=== PATIENT | male | born 1985 | race Caucasian/White ===

== ENCOUNTER 2021-06-30 14:00 | Observation (INO) | payer SELFPAY ==
[~2021-06-30] VITALS: Ht 182 cm; Wt 95.6 kg
--- NOTE | 2021-06-30 14:20 | ED Chest Pain ---
General Chief Complaint: Chest Pain Stated Complaint: ABNORMAL EKG,CP Source: patient Exam Limitations: no limitations History of Present Illness Date Seen by Provider: Jun 30, 2021 Time Seen by Provider: 14:18 Initial Comments To ER by [facility] with reports of abnormal EKG with chest pain. The chest pain has been present for 2 days. He is having trouble sleeping for 2 days and chest pain and trouble catching his breath. He found out 2 days ago that his is from him after 15 years of marriage. He had a brief passing thought that he might be better off but does not have any particular desire to kill himself or plan to do so. He feels very anxious. He does have a history of hypertension hyperlipidemia. Timing/Duration: 1-2 days Severity/Quality: moderate Location: central Radiation: no radiation Activities at Onset: none ASA po TAX SERVICES PROFESSIONAL: No NTG SL TAX SERVICES PROFESSIONAL: No Allergies and Home Medications Allergies Coded Allergies: No Known Allergies (Verified Allergy, Unknown, 09/23/05) Patient Home Medication List Home Medication List Reviewed: Yes Review of Systems Review of Systems Constitutional: see HPI EENTM: No Symptoms Reported Respiratory: See HPI, Shortness of Air Cardiovascular: See HPI, Chest Pain Genitourinary: No Symptoms Reported Musculoskeletal: no symptoms reported Skin: no symptoms reported Psychiatric/Neurological: No Symptoms Reported Endocrine: No Symptoms Reported Hematologic/Lymphatic: No Symptoms Reported Past Kysyitz-Wywwce-Tmmprz Hx Patient Social History Tobacco Use?: No Use of E-Cig and/or Vaping dev: No Substance use?: No Alcohol Use?: No Pt feels they are or have been: No Immunizations Up To Date First/Initial COVID19 Vaccinat: UNK Second COVID19 Vaccination Juan Luis: UNK Past Medical History Nursing Suicide Risk Notes: SEE TRIAGE NOTE Physical Exam Vital Signs Vital Signs - First Documented 06/30/21 14:04 Temp 36.3 Pulse 90 Resp 18 B/P (MAP) 135/88 (104) Pulse Ox 100 O2 Delivery Room Air Capillary Refill : Height, Weight, BMI Height: '" Weight: lbs. oz. kg; BMI Method: General Appearance: No Apparent Distress, WD/WN, Anxious, Other (He denies any plan to kill himself, he states that he just had a passing thought that he might be better off given what he is going through. He makes good eye contact seems reasonable) HEENT: PERRL/EOMI, TMs Normal Respiratory: Normal Breath Sounds, No Accessory Muscle Use, No Respiratory Distress Cardiovascular: Regular Rate, Rhythm, Normal Peripheral Pulses Gastrointestinal: Normal Bowel Sounds, Non Tender, Soft Extremity: Normal Capillary Refill, Normal Inspection Neurologic/Psychiatric: Alert, Oriented x3, Other (he is anxious but denies any desire to hurt himself or anyone else.) Skin: Normal Color, Warm/Dry Progress/Results/Core Measures Results/Orders Lab Results Laboratory Tests Test 06/30/21 14:10 06/30/21 15:14 Range/Units White Blood Count 8.1 4.3-11.0 10^3/uL Red Blood Count 5.86 H 4.30-5.52 10^6/uL Hemoglobin 17.2 13.3-17.7 g/dL Hematocrit 49 40-54 % Mean Corpuscular Volume 83 80-99 fL Mean Corpuscular Hemoglobin 29 25-34 pg Mean Corpuscular Hemoglobin Concent 35 32-36 g/dL Red Cell Distribution Width 13.3 10.0-14.5 % Platelet Count 315 130-400 10^3/uL Mean Platelet Volume 10.5 9.0-12.2 fL Immature Granulocyte % (Auto) 0 % Neutrophils (%) (Auto) 57 42-75 % Lymphocytes (%) (Auto) 33 12-44 % Monocytes (%) (Auto) 10 0-12 % Eosinophils (%) (Auto) 0 0-10 % Basophils (%) (Auto) 0 0-10 % Neutrophils # (Auto) 4.6 1.8-7.8 10^3/uL Lymphocytes # (Auto) 2.6 1.0-4.0 10^3/uL Monocytes # (Auto) 0.8 0.0-1.0 10^3/uL Eosinophils # (Auto) 0.0 0.0-0.3 10^3/uL Basophils # (Auto) 0.0 0.0-0.1 10^3/uL Immature Granulocyte # (Auto) 0.0 0.0-0.1 10^3/uL Prothrombin Time 13.2 12.2-14.7 SEC INR Comment 1.0 0.8-1.4 Activated Partial Thromboplast Time 36 H 24-35 SEC Sodium Level 133 L 135-145 MMOL/L Potassium Level 3.9 3.6-5.0 MMOL/L Chloride Level 98 98-107 MMOL/L Carbon Dioxide Level 22 21-32 MMOL/L Anion Gap 13 5-14 MMOL/L Blood Urea Nitrogen 14 7-18 MG/DL Creatinine 1.12 0.60-1.30 MG/DL Estimat Glomerular Filtration Rate 87 BUN/Creatinine Ratio 13 Glucose Level 113 H 70-105 MG/DL Calcium Level 10.2 H 8.5-10.1 MG/DL Corrected Calcium 8.5-10.1 MG/DL Magnesium Level 2.2 1.6-2.4 MG/DL Total Bilirubin 1.5 H 0.1-1.0 MG/DL Aspartate Amino Transf (AST/SGOT) 17 5-34 U/L Alanine Aminotransferase (ALT/SGPT) 28 0-55 U/L Alkaline Phosphatase 69 40-136 U/L Myoglobin 56.5 10.0-92.0 NG/ML Troponin I 0.081 H <0.028 NG/ML C-Reactive Protein High Sensitivity 0.12 0.00-0.50 MG/DL B-Type Natriuretic Peptide < 10.0 <100.0 PG/ML Total Protein 8.8 H 6.4-8.2 GM/DL Albumin 5.4 H 3.2-4.5 GM/DL Erythrocyte Sedimentation Rate 5 0-15 MM/HR My Orders Orders - MIRNA BORJA ALMOND PA[employer]ER Cbc With Automated Diff (06/30/21 14:17) Magnesium (06/30/21 14:17) Chest 1 View, Ap/Pa Only (06/30/21 14:17) Ekg Tracing (06/30/21 14:17) Comprehensive Metabolic Panel (06/30/21 14:17) Myoglobin Serum (06/30/21 14:17) Protime With Inr (06/30/21 14:17) Partial Thromboplastin Time (06/30/21 14:17) O2 (06/30/21 14:17) Monitor-Rhythm Ecg Trace Only (06/30/21 14:17) Lipid Panel (07/01/21 06:00) Ed Iv/Invasive Line Start (06/30/21 14:17) Bnp Simon (06/30/21 14:17) Troponin I Churchill (06/30/21 14:17) Aspirin Chewable Tablet (Baby Aspirin Ch (06/30/21 14:30) Lorazepam Injection (Ativan Injection) (06/30/21 14:30) Ekg Tracing (06/30/21 14:58) Nitroglycerin 0.4 Mg Btl 25's (Nitrostat (06/30/21 15:15) Erythrocyte Sedimentation Rate (06/30/21 15:06) Hs C Reactive Protein (06/30/21 15:06) Medications Given in ED Current Medications Medications Dose Ordered Sig/Bryson Route Start Time Stop Time Status Last Admin Dose Admin Aspirin 324 mg ONCE ONCE PO 06/30/21 14:30 06/30/21 14:31 DC 06/30/21 14:32 324 MG Lorazepam 0.5 mg ONCE PRN IVP 06/30/21 14:30 06/30/21 14:32 0.5 MG Nitroglycerin 1 TAB Q 5 MIN X 3 NEEDED PRN SL 06/30/21 15:15 06/30/21 15:20 0.4 MG Vital Signs/I&O 06/30/21 06/30/21 06/30/21 14:04 14:20 14:34 Temp 36.3 Pulse 90 85 Resp 18 18 B/P (MAP) 135/88 (104) 132/84 Pulse Ox 100 97 97 O2 Delivery Room Air Room Air Room Air Diagnostic Imaging Diagonstic Imaging: Xray Plain Films/CT/US/NM/MRI: chest Comments NAME: DEVYN VIGIL [facility] REC#: [id number] PT STATUS: REG ER : 1985 PHYSICIAN: MIRNA BORJA APRN ADMIT DATE: 06/30/21/ER Draft Date of Exam:06/30/21 CHEST 1 VIEW, AP/PA ONLY INDICATION: Left-sided chest pain. TIME OF EXAM: 2:43 p.m. COMPARISON: No prior studies are available for comparison. FINDINGS: The heart size is normal. The pulmonary vascularity is unremarkable. The lungs are clear. No infiltrate, effusion or pneumothorax is detected. IMPRESSION: No acute cardiopulmonary process is detected. Dictated on workstation # [id number] Dict: 06/30/21 1443 Trans: 06/30/21 1445 [id number] Interpreted by: MARIELA DOTY MD Electronically signed by: Departure Communication (Admissions) His EKG from [facility] was reviewed in addition to the one obtained here. This is sinus rhythm in the 90s, no ST segment change no ectopy. Our EKG machine interpreted this as minimal ST elevation in the lateral leads but do not appreciate any ST segment change. Intervals are normal, no ectopy 1502*-arrival he was given 324 mg of baby aspirin and 0.5 mg lorazepam. At this time he reports that he feels more calm and the anxiety seems to be gone. However the chest tightness still persists as does the dyspnea. He is about 1 month out from having Covid. He rates the chest tightness as a 4 out of 10. We will get a repeat EKG and try some sublingual nitroglycerin. He states he feels much more calm and appears so. His troponin is a little bumped up 0.081. We will evaluate his response to nitroglycerin, look at the repeat EKG and call Dr. Avelar from cardiology. 1609-2 sublingual nitroglycerin completely alleviated the rest of his symptoms of shortness of breath and chest tightness. Alert very pleasant hemodynamically stable. I spoke with Dr. Avelar from cardiology. Will admit observation serial troponins. A one-time dose of Lovenox here in the emergency room. Aspirin upstairs. I will admit to Dr. Campbell who is on-call for [facility]. Impression Primary Impression: Chest pain Additional Impression: Anxiety Disposition: ADMITTED INPATIENT Condition: Stable Admissions Decision to Admit Reason: Admit from ER (General) Decision to Admit/Date: Jun 30, 2021 Time/Decision to Admit Time: 16:10 Departure-Patient Inst. Referrals: NO,LOCAL PHYSICIAN (PCP/Family) Primary Care Physician MIRNA BORJA APRN Jun 30, 2021 14:20
[2021-06-30 14:23] LABS: BASOPHILS % (AUTO) 0 % (0-10); EOSINOPHILS % (AUTO) 0 % (0-10); HEMATOCRIT 49 % (40-54); HEMOGLOBIN 17.2 g/dL (13.3-17.7); LYMPHOCYTES # (AUTO) 2.6 10^3/uL (1.0-4.0); LYMPHOCYTES % (AUTO) 33 % (12-44); MEAN CORPUSCULAR HEMOGLOBIN 29 pg (25-34); MEAN CORPUSCULAR HGB CONC 35 g/dL (32-36); MEAN CORPUSCULAR VOLUME 83 fL (80-99); MEAN PLATELET VOLUME 10.5 fL (9.0-12.2); MONOCYTES # (AUTO) 0.8 10^3/uL (0.0-1.0); MONOCYTES % (AUTO) 10 % (0-12); NEUTROPHILS # (AUTO) 4.6 10^3/uL (1.8-7.8); NEUTROPHILS % (AUTO) 57 % (42-75); PLATELET COUNT 315 10^3/uL (130-400); WHITE BLOOD COUNT 8.1 10^3/uL (4.3-11.0)
[2021-06-30 14:26] LABS: ALBUMIN 5.4 GM/DL (3.2-4.5); CHLORIDE 98 MMOL/L (98-107); POTASSIUM 3.9 MMOL/L (3.6-5.0); SODIUM 133 MMOL/L (135-145)
[2021-06-30 14:27] LABS: CALCIUM 10.2 MG/DL (8.5-10.1)
[2021-06-30 14:29] LABS: GLUCOSE 113 MG/DL (70-105); PROTHROMBIN TIME PATIENT 13.2 SEC (12.2-14.7); TOTAL PROTEIN 8.8 GM/DL (6.4-8.2)
[2021-06-30 14:30] LABS: BILIRUBIN,TOTAL 1.5 MG/DL (0.1-1.0); CARBON DIOXIDE 22 MMOL/L (21-32)
[2021-06-30] MEDS ORDERED: ASPIRIN 81 MG CHEW (CHILDREN'S ASA) PO ONE (14:30)
[2021-06-30] MEDS ORDERED: LORazepam INJ 2 MG/ML (ATIVAN) VIAL IVP PRN ×2 (14:30→16:45)
[2021-06-30 14:32] LABS: ALKALINE PHOSPHATASE 69 U/L (40-136); CREATININE SERUM 1.12 MG/DL (0.60-1.30); GFR ESTIMATED 87
[2021-06-30 14:33] LABS: BUN/CREATININE RATIO 13
[2021-06-30 14:35] LABS: ALANINE AMINOTRANSFERASE 28 U/L (0-55); MAGNESIUM 2.2 MG/DL (1.6-2.4)
--- NOTE | 2021-06-30 14:45 | Diagnostic Imaging Report ---
INDICATION: Left-sided chest pain. TIME OF EXAM: 2:43 p.m. COMPARISON: No prior studies are available for comparison. FINDINGS: The heart size is normal. The pulmonary vascularity is unremarkable. The lungs are clear. No infiltrate, effusion or pneumothorax is detected. IMPRESSION: No acute cardiopulmonary process is detected. Dictated by: Dictated on workstation # [id number]
[2021-06-30] MEDS ORDERED: NITROGLYCERIN 0.4 MG SL TABS BTL 25'S SL PRN ×2 (15:15→16:45)
[2021-06-30] MEDS ORDERED: ENOXAPARIN 60 MG/0.6 ML (LOVENOX) SYR SC ONE ×2 (16:15→16:30)
[2021-06-30] MEDS ORDERED: ENOXAPARIN 40 MG/0.4 ML (LOVENOX) SYR ONE (16:20)
[2021-06-30] MEDS ORDERED: ENOXAPARIN 40 MG/0.4 ML (LOVENOX) SYR SC ONE (16:30)
[2021-06-30] MEDS ORDERED: ONDANSETRON 4 MG/2 ML (SDV) Z0FRAN IVP PRN (16:45)
[2021-06-30] MEDS ORDERED: PATIENT MAY USE OWN MEDS, ALL PO SCH (16:45)
[2021-06-30 16:50] VITALS: BP 140/95
[2021-06-30] MEDS ORDERED: LISI1TAB46 PO (17:18)
[2021-06-30] MEDS ORDERED: BUPR-42 PO (17:18)
[2021-06-30] MEDS: NS IV 1000 ML 1,000 ML IV SCH (17:26)
[2021-06-30] MEDS ORDERED: FLU QUADRIvalent (3YOA+) 60 mcg/0.5 ml 2021-22(AFLURIA) IM ONE (18:00)
[2021-07-01 04:50] LABS: BASOPHILS % (AUTO) 0 % (0-10); EOSINOPHILS % (AUTO) 0 % (0-10); HEMATOCRIT 45 % (40-54); HEMOGLOBIN 15.6 g/dL (13.3-17.7); LYMPHOCYTES # (AUTO) 3.1 10^3/uL (1.0-4.0); LYMPHOCYTES % (AUTO) 40 % (12-44); MEAN CORPUSCULAR HEMOGLOBIN 29 pg (25-34); MEAN CORPUSCULAR HGB CONC 35 g/dL (32-36); MEAN CORPUSCULAR VOLUME 84 fL (80-99); MEAN PLATELET VOLUME 10.4 fL (9.0-12.2); MONOCYTES # (AUTO) 0.8 10^3/uL (0.0-1.0); MONOCYTES % (AUTO) 10 % (0-12); NEUTROPHILS # (AUTO) 3.8 10^3/uL (1.8-7.8); NEUTROPHILS % (AUTO) 49 % (42-75); PLATELET COUNT 243 10^3/uL (130-400); WHITE BLOOD COUNT 7.7 10^3/uL (4.3-11.0)
[2021-07-01 04:59] LABS: CHLORIDE 103 MMOL/L (98-107); POTASSIUM 3.8 MMOL/L (3.6-5.0); SODIUM 135 MMOL/L (135-145)
[2021-07-01 05:00] LABS: ALBUMIN 4.6 GM/DL (3.2-4.5)
[2021-07-01 05:01] LABS: CALCIUM 9.1 MG/DL (8.5-10.1)
[2021-07-01 05:02] LABS: GLUCOSE 98 MG/DL (70-105); TOTAL PROTEIN 7.4 GM/DL (6.4-8.2); TRIGLYCERIDES 228 MG/DL (<150); VLDL CHOLESTEROL 46 MG/DL (5-40)
[2021-07-01 05:03] LABS: CARBON DIOXIDE 20 MMOL/L (21-32)
[2021-07-01 05:04] LABS: BILIRUBIN,TOTAL 1.2 MG/DL (0.1-1.0)
[2021-07-01 05:06] LABS: ALKALINE PHOSPHATASE 59 U/L (40-136); GFR ESTIMATED 99
[2021-07-01 05:07] LABS: BUN/CREATININE RATIO 14; CHOLESTEROL 205 MG/DL (< 200)
[2021-07-01 05:08] LABS: HDL CHOLESTEROL 28 MG/DL (40-60)
[2021-07-01 05:09] LABS: ALANINE AMINOTRANSFERASE 21 U/L (0-55)
[2021-07-01] MEDS: NS IV 1000 ML 1,000 ML IV SCH (05:48)
--- NOTE | 2021-07-01 08:46 | History & Physical-Hospitalist ---
History of Present Illness HPI/Chief Complaint This is a 36-year-old white male with a history of hypertension who presents to the emergency room with chest discomfort that is midsternal without radiation. It is associated perhaps with a little bit of nausea but no diaphoresis or shortness of breath. His troponin was borderline positive and is remained such overnight. EKG is without ST segment changes that are acute. Patient says he has been having intermittent chest discomfort relieved with nitro throughout the night. He is currently undergoing a separation from his of 15 years is under more stress. He has a history of depression and anxiety in the past. He had smoked up until about 3 years ago but continues to use medical marijuana intermittently with either edibles or inhalation. He has had hypertension since his early 20s with occasional severe hypertension. He has no immediate family history of early heart disease or history of diabetes. HDL is low at 25 Source: patient Exam Limitations: no limitations Date Seen 07/01/21 Time Seen by a Provider: 08:15 Attending Physician Dot Campbell MD PCP No,Local Physician Referring Physician Date of Admission Jun 30, 2021 at 16:12 Home Medications & Allergies Home Medications Reviewed patient Home Medication Reconciliation performed by pharmacy medication reconciliations nutrition technician and/or nursing. Patients Allergies have been reviewed. Allergies Allergies Coded Allergies NKANo Known Allergies (Verified Allergy, Unknown, 09/23/05) Past Vhdnvax-Rkbvve-Otnmpc Hx Patient Social History Marrital Status: Employed/Student: unemployed Tobacco Use?: Yes Tobacco type used: Cigarettes Smoking Status: Former Smoker Smokeless type used: Chew Use of E-Cig and/or Vaping dev: No E-Cig or Vaping type used: Marijuana Substance use?: Yes Substance type: Marijuana Alcohol Use?: No Pt feels they are or have been: Yes Immunizations Up To Date First/Initial COVID19 Vaccinat: UNK Second COVID19 Vaccination Juan Luis: UNK Current Status Advance Directives: No Communicates: Verbally Primary Language: Grenadian Preferred Spoken Language: Grenadian Is interpretation needed?: No Implanted or Applied Medical D: None Past Medical History High Cholesterol, Hypertension Anxiety, Depression Nursing Suicide Risk Notes: SEE TRIAGE NOTE Family Medical History Hypertension Review of Systems Constitutional: see HPI EENTM: no symptoms reported Respiratory: no symptoms reported Cardiovascular: chest pain Gastrointestinal: no symptoms reported Genitourinary: no symptoms reported Musculoskeletal: no symptoms reported Skin: no symptoms reported Psychiatric/Neurological: Anxiety, Depressed Physical Exam Physical Exam Vital Signs Vital Signs - First Documented 06/30/21 14:04 Temp 36.3 Pulse 90 Resp 18 B/P (MAP) 135/88 (104) Pulse Ox 100 O2 Delivery Room Air Capillary Refill : Less Than 3 Seconds Height, Weight, BMI Height: '" Weight: lbs. oz. kg; 28.98 BMI Method: General Appearance: No Apparent Distress, WD/WN HEENT: TMs Normal, Normal ENT Inspection Neck: Full Range of Motion, Normal Inspection, Non Tender, Supple Respiratory: Chest Non Tender, Lungs Clear, Normal Breath Sounds, No Accessory Muscle Use, No Respiratory Distress Cardiovascular: Regular Rate, Rhythm, No Edema, No Gallop, No JVD, No Murmur, Normal Peripheral Pulses Gastrointestinal: Normal Bowel Sounds, No Organomegaly, Non Tender, Soft Rectal: Deferred Extremity: Normal Capillary Refill, Normal Range of Motion, Non Tender, No Calf Tenderness, No Pedal Edema Neurologic/Psychiatric: Alert, Oriented x3, No Motor/Sensory Deficits, Normal Mood/Affect Skin: Normal Color, Warm/Dry Results Results/Procedures Labs Laboratory Tests 06/30/21 14:10 07/01/21 04:40 Patient resulted labs reviewed. Imaging: Reviewed Imaging Report Assessment/Plan Admission Diagnosis Chest pain Positive troponin Anxiety Hypertension Admission Status: Observation Clinical Quality Measures AMI/AHF: ASA po Prior to arrival: DOT Hooper MD Jul 01, 2021 08:46
[2021-07-01] MEDS ORDERED: ASPIRIN E.C. 81 MG (ECOTRIN) TAB PO SCH (09:00)
[2021-07-01] MEDS ORDERED: ANTACID SUSP 30 ML UDC (MYLANTA) PO NR (10:30)
[2021-07-01] MEDS ORDERED: LIDOCAINE 2% VISCOUS 15 ML UDC PO ONE (10:30)
[2021-07-01] MEDS ORDERED: LIDOCAINE 2% VISCOUS 15 ML UDC PO NR (10:45)
--- NOTE | 2021-07-01 10:56 | Consultation-Cardiology ---
HPI-Cardiology Cardiology Consultation: Date of Consultation 07/01/2021 Date of Admission 06/30/2021 Attending Physician Dot Campbell MD Admitting Physician No,Local Physician Consulting Physician SLAVA ADAN JR, MD HPI: Time Seen by a Provider: 10:51 Chief Complaint: Reason for consultation: Chest pain and abnormal troponin level. I had the pleasure of seeing Raymond on the cardiac stepdown unit at [facility] in [place], [place] this morning. He has no known history of coronary artery disease. He was in his usual state of reasonably good health until 2 days ago when his announced that she wanted a divorce. Soon thereafter, he started developing substernal chest pressure. He feels as though somebody is squeezing his chest. This is towards the left side of his chest. He denies radiation. This does make him feel short of breath and he has also had some paroxysmal nocturnal dyspnea since this started. The chest discomfort seems to wax and wane throughout the day. Sometimes doing slow breathing will help relieve the discomfort. Other than that, nothing seems to make this better or worse. He does have a history of acid reflux and takes zsrx-cyw-qawapql medication from time to time but the current chest discomfort does not feel like his acid reflux. After this went on for couple of days, he finally came to the emergency room for further evaluation. He was found to have mild elevation of the troponin level and was admitted for further evaluation. He has also been given some sublingual nitroglycerin here in the hospital and he seems to think this helps with the chest discomfort. This morning when I saw the patient, he still had some chest tightness and shortness of breath. He denies orthopnea or palpitations. He has occasional lightheaded spells when he leans over to pick something up but denies any syncope. He denies any lower extremity edema. He quit smoking 3 years ago. He still does use medical marijuana. He is currently unemployed. Because of the chest discomfort and abnormal troponin level, a cardiology consultation was requested. Certain portions of this document may have been dictated utilizing voice recognition technology. Inherent to this technology, typographical and grammatical errors may exist. As much as I am diligent to identify and correct these mistakes, some errors may remain in the document. Review of Systems-Cardiology Review of Systems Other comments Review of 10 organ systems is as per the history of present illness, otherwise negative. SYY-Ydqvwh-Acbsgo Hx Patient Social History Marrital Status: Employed/Student: unemployed Smoking Status: Former Smoker Alcohol Use?: No Substance type: Marijuana Pt feels they are or have been: Yes Tobacco type used: Cigarettes Past Medical History PMH As described under Assessment. Family Medical History Family Medical History: He believes his father had a myocardial infarction in his 30s. Allergies and Home Medications Allergies Coded Allergies: NKANo Known Allergies (Verified Allergy, Unknown, 09/23/05) Patient Home Medication List Home Medication List Reviewed: Yes Bupropion HCl (Wellbutrin Xl) 150 Mg Tab.er.24h, 150 MG PO DAILY, (Reported) Entered as Reported by: MUSA FLETCHER on 06/30/211717 Last Action: Reviewed Lisinopril/Hydrochlorothiazide (Lisinopril-Hctz 20-12.5 mg Tab) 1 Each Tablet, 1 EACH PO DAILY, (Reported) Entered as Reported by: MUSA FLETCHER on 06/30/211717 Last Action: Reviewed Exam Vital Signs Vital Signs Date Time Temp Pulse Resp B/P (MAP) Pulse Ox O2 Delivery O2 Flow Rate FiO2 07/01/21 08:03 95 Room Air 07/01/21 07:57 36.9 74 14 126/75 Physical Exam General: Alert. No acute distress. Well nourished and appears stated age. Eye: Extraocular movements are intact. Conjunctivae are clear. There are no xanthelasma. HENT: Normocephalic. Atraumatic. Carotid pulsations 2/2 without bruits. Neck: Jugular venous pressure does not appear elevated. No thyromegaly appreciated. Respiratory: Lungs are clear to auscultation. Respirations are non-labored. Breath sounds are equal. Symmetrical chest wall expansion. Cardiovascular: Normal rate. Regular rhythm. No murmur. No gallop. Point of maximal impulse is not appear displaced. Good pulses equal in all extremities. No edema. Gastrointestinal: Soft. Normal bowel sounds. Skin: Skin turgor is normal. There is no pallor. Musculoskeletal: No kyphosis or scoliosis appreciated. Neurologic: Alert and oriented to person, place, time. Cranial nerves 3-12 appear grossly intact. The patient has good motor tone strength in the upper and lower extremities bilaterally. Psychiatric: Cooperative. Appropriate mood & affect. Labs Laboratory Tests Test 2/11/22 14:10 06/30/21 15:14 06/30/21 19:45 07/01/21 04:40 Range/Units White Blood Count 8.1 7.7 4.3-11.0 10^3/uL Red Blood Count 5.86 H 5.31 4.30-5.52 10^6/uL Hemoglobin 17.2 15.6 13.3-17.7 g/dL Hematocrit 49 45 40-54 % Mean Corpuscular Volume 83 84 80-99 fL Mean Corpuscular Hemoglobin 29 29 25-34 pg Mean Corpuscular Hemoglobin Concent 35 35 32-36 g/dL Red Cell Distribution Width 13.3 13.2 10.0-14.5 % Platelet Count 315 243 130-400 10^3/uL Mean Platelet Volume 10.5 10.4 9.0-12.2 fL Immature Granulocyte % (Auto) 0 0 % Neutrophils (%) (Auto) 57 49 42-75 % Lymphocytes (%) (Auto) 33 40 12-44 % Monocytes (%) (Auto) 10 10 0-12 % Eosinophils (%) (Auto) 0 0 0-10 % Basophils (%) (Auto) 0 0 0-10 % Neutrophils # (Auto) 4.6 3.8 1.8-7.8 10^3/uL Lymphocytes # (Auto) 2.6 3.1 1.0-4.0 10^3/uL Monocytes # (Auto) 0.8 0.8 0.0-1.0 10^3/uL Eosinophils # (Auto) 0.0 0.0 0.0-0.3 10^3/uL Basophils # (Auto) 0.0 0.0 0.0-0.1 10^3/uL Immature Granulocyte # (Auto) 0.0 0.0 0.0-0.1 10^3/uL Prothrombin Time 13.2 12.2-14.7 SEC INR Comment 1.0 0.8-1.4 Activated Partial Thromboplast Time 36 H 24-35 SEC Sodium Level 133 L 135 135-145 MMOL/L Potassium Level 3.9 3.8 3.6-5.0 MMOL/L Chloride Level 98 103 98-107 MMOL/L Carbon Dioxide Level 22 20 L 21-32 MMOL/L Anion Gap 13 12 5-14 MMOL/L Blood Urea Nitrogen 14 14 7-18 MG/DL Creatinine 1.12 1.00 0.60-1.30 MG/DL Estimat Glomerular Filtration Rate 87 99 BUN/Creatinine Ratio 13 14 Glucose Level 113 H 98 70-105 MG/DL Calcium Level 10.2 H 9.1 8.5-10.1 MG/DL Corrected Calcium 8.5-10.1 MG/DL Magnesium Level 2.2 1.6-2.4 MG/DL Total Bilirubin 1.5 H 1.2 H 0.1-1.0 MG/DL Aspartate Amino Transf (AST/SGOT) 17 15 5-34 U/L Alanine Aminotransferase (ALT/SGPT) 28 21 0-55 U/L Alkaline Phosphatase 69 59 40-136 U/L Myoglobin 56.5 10.0-92.0 NG/ML Troponin I 0.081 H 0.064 H 0.078 H <0.028 NG/ML C-Reactive Protein High Sensitivity 0.12 0.00-0.50 MG/DL B-Type Natriuretic Peptide < 10.0 <100.0 PG/ML Total Protein 8.8 H 7.4 6.4-8.2 GM/DL Albumin 5.4 H 4.6 H 3.2-4.5 GM/DL Erythrocyte Sedimentation Rate 5 0-15 MM/HR Triglycerides Level 228 H <150 MG/DL Cholesterol Level 205 H < 200 MG/DL LDL Cholesterol Direct 146 H 1-129 MG/DL VLDL Cholesterol 46 H 5-40 MG/DL HDL Cholesterol 28 L 40-60 MG/DL Radiology ECHOCARDIOGRAM (07/01/2021): 1. Left ventricle: The cavity size is normal. There is mild concentric hypertrophy. Systolic function is normal. The estimated ejection fraction is 55- 60%. There were no regional wall motion abnormalities identified. Left ventricular diastolic function parameters are normal. 2. Pulmonary arteries: The estimated pulmonary artery systolic pressure is 35 mmHg assuming a right atrial pressure of 5 mmHg. ECG Impression ECG Comment He has had several electrocardiograms which have shown sinus rhythm with left atrial abnormality and 2 of the tracings show probable early repolarization. There have not been any concerning ischemic changes on any of the electrocardiograms. Diagnosis/Problems Diagnosis/Problems (1) Chest pain Status: Acute Assessment & Plan: Unclear whether this could be cardiac versus noncardiac chest pain. He does not have any ischemic changes or signs of previous myocardial infarction on his resting electrocardiogram. His echocardiogram is unremarkable. However, he does have cardiac risk factors hypertension, hyperlipidemia and family history of premature coronary artery disease. He also has mildly elevated troponin levels. He was given a gastrointestinal cocktail and this did not help with the chest discomfort. He has been getting some relief of the chest discomfort with sublingual nitroglycerin. In light of these findings, I recommend further evaluation with a cardiac catheterization. (2) Elevated troponin Assessment & Plan: As above, unclear whether or not this could represent an acute coronary syndrome. He has been started on low strength aspirin. He received 1 therapeutic dose of enoxaparin in the emergency room. We will proceed as above. (3) Primary hypertension Assessment & Plan: Resume outpatient antihypertensive medication. If it turns out that he does have an acute coronary syndrome, then we may want to start beta-dania as well. (4) Mixed hyperlipidemia Assessment & Plan: He had been on gemfibrozil in the past but stopped this because he could not afford the medication. I would suggest that we place him on rosuvastatin. This should help both his triglycerides and LDL levels which are both only mild to moderately elevated. SLAVA ADAN JR, MD Jul 01, 2021 10:56
[2021-07-01] MEDS ORDERED: PANTOPRAZOLE 40 MG (PROTONIX) TAB PO NR (11:00)
[2021-07-01] MEDS ORDERED: NS IV 1000 ML 1,000 ML IV ONE (12:45)
--- NOTE | 2021-07-01 14:54 | Pre-Op Note & Conscious Sedat ---
Pre-Operative Progress Note H&P Reviewed The H&P was reviewed, patient examined and no changes noted. Date H&P Reviewed: Jul 01, 2021 Time H&P Reviewed: 14:54 Pre-Op Diagnosis: Possible non-ST elevation myocardial infarction Conscious Sedation Pre-Proced ASA Score 2 For ASA 3 and 4: Consider anesthesia and medical clearance. Also, for patients with a history of failed moderate sedation consider anesthesia. Airway Lungs Heart ASA score ASA 1: a normal healthy patient ASA 2: a patient with a mild systemic disease (mid diabetes, controlled hypertension, obesity ASA 3: a patient with a severe systemic disease that limits activity (angina, COPD, prior Myocardial infarction) ASA 4: a patient with an incapacitating disease that is a constant threat to life (CHF, renal failure) ASA 5: a moribund patient not expected to survive 24 hrs. (ruptured aneurysm) ASA 6: a declared brain- patient whose organs are being harvested. For emergent operations, add the letter E after the classification Mallampati Classification Grade 2 Sedation Plan Analgesia, Amnesia, Plan communicated to team members, Discussed options with patient/fam, Discussed risks with patient/fam The patient is an appropriate candidate to undergo the planned procedure, sedation, and anesthesia. The patient immediately re-assessed prior to indication. SLAVA ADAN JR, MD Jul 01, 2021 14:54
[2021-07-01] MEDS ORDERED: VERAPAMIL 5 MG/2 ML (CALAN) VIAL IV ONE (15:15)
[2021-07-01] MEDS ORDERED: HEParin 1000 UNIT/ML (10ML VIAL) FOR BOLUS ONE (15:16)
[2021-07-01] MEDS ORDERED: NITRO DRIP 25000 MCG/D5W 250 ML IV ONE (15:16)
[2021-07-01] MEDS ORDERED: MIDAZOLAM 5 MG/5 ML (VERSED) VIAL ONE (15:16)
[2021-07-01] MEDS ORDERED: NS IV 1000 ML 1,000 ML ONE (15:16)
[2021-07-01] MEDS ORDERED: fentaNYL INJ 100 MCG/2 ML AMP ONE (15:17)
[2021-07-01] MEDS ORDERED: HEParin (CATH LAB) 2,000 ML IV ONE (15:18)
[2021-07-01] MEDS ORDERED: LIDOCAINE 1% INJ 20 ML VIAL ONE (15:20)
--- NOTE | 2021-07-01 16:13 | Cardiac Cath Report ---
CARDIAC CATHETERIZATION DATE OF PROCEDURE: 07/01/2021 INDICATION: Chest pain and abnormal troponin level. HISTORY: The patient is a 36 year old male with no known history of coronary artery disease but cardiac risk factors with hypertension, hyperlipidemia and family history of premature coronary artery disease. He presented to the hospital with a 2-day history of substernal chest pressure. He did not have any changes on his electrocardiogram but his initial troponin level was mildly elevated. He was treated with aspirin and therapeutic dose of Lovenox and admitted to cardiac stepdown. He had 2 subsequent troponin levels both of which were elevated. He has ongoing chest discomfort that responded to sublingual nitroglycerin but not a gastrointestinal cocktail. Therefore, he is now referred for further evaluation with a cardiac catheterization. PROCEDURES PERFORMED: 1. Left heart catheterization with hemodynamic measurements. 2. Diagnostic port heiden coronary angiography. PROCEDURE DESCRIPTION: After informed consent and in the fasting state, left heart catheterization was performed through the right radial artery utilizing a 6 [place] system by percutaneous approach. Standard 5 [place] Lee catheters were utilized for the diagnostic portion of the procedure. All catheters were exchanged over a guidewire. Following the procedure, a vascular band was a pplied to the radial artery access site and the sheath was removed with good hemostasis. RESULTS: HEMODYNAMICS: The aortic pressure was 127/65 mmHg. The left ventricular pressure was 148/0 mmHg with a left ventricular end-diastolic pressure of 4 mmHg. There was no significant pressure gradient upon pullback across aortic valve. CORONARY ANGIOGRAPHY: Left main coronary artery: Free of significant disease. Left anterior descending coronary artery: Free of significant disease. Left circumflex coronary artery: Free of significant disease. Right coronary artery: Dominant and free of significant disease. IMPRESSION: 1. Normal left heart pressures. 2. Angiographically normal-appearing coronary arteries in a right dominant system. 3. The patient is known to have normal left ventricular systolic function with an estimated ejection fraction of 55-60% by echocardiogram obtained earlier today. 4. Based upon these findings, the patient most likely has noncardiac chest pain. The exact etiology of the mild troponin elevation is undetermined. I do not believe this represents a myocardial infarction as evidenced by the lack of any significant coronary artery disease on this angiogram and he does not have any other noncardiac illnesses to explain a supply/demand mismatch that would cause a type II non-ST elevation myocardial infarction. Certain portions of this document may have been dictated utilizing voice recognition technology. Inherent to this technology, typographical and grammatical errors may exist. As much as I am diligent to identify and correct these mistakes, some errors may remain in the document. SLAVA ADAN JR, MD Jul 01, 2021 16:13
[2021-07-01] MEDS ORDERED: NS IV 1000 ML 1,000 ML IV SCH (16:15)
[2021-07-01] MEDS ORDERED: PATIENT MAY USE OWN MEDS, ALL PO SCH (16:15)
[2021-07-01] MEDS ORDERED: ROSU10TA28 PO (16:40)
[2021-07-01] MEDS ORDERED: PANT40TA52 PO (16:41)
[2021-07-01] MEDS ORDERED: ROSUVASTATIN 10 MG (CRESTOR) TABLET PO SCH (21:00)
[2021-07-02] MEDS ORDERED: PANTOPRAZOLE 40 MG (PROTONIX) TAB PO SCH (09:00)
== END 2021-07-01 18:50 | disposition home or self-care (01) ==
LOC: EDUNIT# 14:00 → ER 14:02 → CSD 16:12
PROVIDERS: ADMIT Internal Medicine; ATTEND Internal Medicine
DX: I25.10 Atherosclerotic heart disease of native coronary artery without angina pectoris (principal); R79.89 Other specified abnormal findings of blood chemistry; I10 Essential (primary) hypertension; E78.00 Pure hypercholesterolemia, unspecified; F32.A Depression, unspecified; F41.9 Anxiety disorder, unspecified; Z87.891 Personal history of nicotine dependence; Z79.899 Other long term (current) drug therapy; E78.5 Hyperlipidemia, unspecified
CPT/HCPCS: 71045; 80053 ×2; 80061; 83735; 83874; 83880; 84484 ×2; 85025 ×2; 85379; 85610; 85652; 85730; 86141; 93005 ×2; 93041; 93306; 93458; 99284; C1894; 36415